=== PATIENT | female | born 1950 | race Asian ===

== ENCOUNTER 2016-06-21 05:38 | Day surgery (SDC) | payer BC ==
[2016-06-20 17:22] VITALS: Ht 154.9 cm; Wt 56.8 kg
[2016-06-21] VITALS (9 sets, daily range): BP systolic 107–148; BP diastolic 61–94; PULSE 70–78; RESP 10–18
[~2016-06-21] VITALS: Ht 154.9 cm; Wt 56.8 kg
[~2016-06-21 05:38] MED LIST: ATOR80TA75 PO; CLOP300T15 PO; ISOS40TA15 PO; LOSA100T7 PO
[2016-06-21] MEDS ORDERED: CEFAZOLIN 2 GM/50 ML (PMX) 50 ML IVPB SCH (07:00)
[2016-06-21] MEDS: SOD CHLORIDE 0.9% 1,000 ML IV SCH ×3 (07:33→09:38)
[2016-06-21] MEDS ORDERED: LIDOCAINE 2% (MDV) 20 ML INJ ONE (07:59)
[2016-06-21] MEDS ORDERED: BUPIVACAINE 0.5% (SDV) 30 ML INJ ONE (07:59)
[2016-06-21] MEDS ORDERED: FENTAnyl 50 MCG/ML VIAL ONE (09:11)
[2016-06-21] MEDS ORDERED: MIDAZOLAM 1 MG/ML 2 ML INJ ONE (09:11)
[2016-06-21] MEDS ORDERED: LIDOCAINE 2% (SDV) 5 ML INJ ONE (09:35)
[2016-06-21] MEDS ORDERED: PROPOFOL 20 ML ONE (09:35)
[2016-06-21] MEDS ORDERED: CEFAZOLIN 1 GM INJ ONE (09:35)
--- NOTE | 2016-06-21 09:46 | OPR ---
DATE OF OPERATION: 06/21/2016 INDICATION: This is a 65-year-old female with a back mass. She requests surgical excision. The ris ks, alternatives, benefits, and personnel were discussed with the patient. The patient expressed un derstanding and consented to the operation. PREOPERATIVE DIAGNOSIS: Back mass. POSTOPERATIVE DIAGNOSIS: Back mass. OPERATION PERFORMED: 1. Excision of back mass with a 5 x 2-cm size incision and a 5 x 2-cm size mass. 2. Localized adjacent tissue transfer with the use of skin flaps. SURGEON: Juan Pablo Arceo MD SPECIMEN: Back mass. COMPLICATIONS: None. ANESTHESIA: MAC. PROCEDURE: The patient taken to the OR and prepped and draped in the usual sterile fashion. A surg ical timeout was performed. IV antibiotics were given. An elliptical incision was made with a 15 b lade after local anesthesia was infiltrated. Dissection cautery was carried down to the mass and ci rcumferentially excised. There was good hemostasis. Due to the tissue defect, localized adjacent t issue transfer with the use of skin flaps was performed. Multilayer closure with interrupted 3-0 Vi cryl and skin jesse. Dry dressings were applied. Dictated By: JUAN PABLO KAPOOR/ALEC Conf#: [id number] DID#: [id number]
[2016-06-21] MEDS ORDERED: ONDANSETRON 4 MG INJ IV PRN (10:00)
[2016-06-21] MEDS ORDERED: morphine (1 MG/ML) 10ML SYRINGE IV PRN (10:00)
[2016-06-21] MEDS ORDERED: FENTAnyl 50 MCG/ML VIAL IV PRN (10:00)
[2016-06-21] MEDS ORDERED: MEPERIDINE 25 MG INJ IV PRN (10:00)
[2016-06-21] MEDS ORDERED: HYDROCODONE/APAP (5/325) TAB PO ONE (10:00)
[2016-06-21] MEDS ORDERED: DIPHENHYDRAMINE 50 MG INJ IV PRN (10:00)
== END 2016-06-21 11:50 | disposition home or self-care (01) ==
LOC: SUR 05:38 → SDS 05:38 → SUR 11:50
PROVIDERS: ATTEND Surgery
DX: L72.0 Epidermal cyst (principal); I10 Essential (primary) hypertension
CPT/HCPCS: 14000; 88304; J0690; J2250; J3010; Z7512; Z7610